=== PATIENT | male | born 1960 | race African-American/Black ===

== ENCOUNTER 2018-05-28 14:59 | Day surgery (SDC) | payer BC ==
[2018-05-26 17:22] VITALS: BMI 22.1
[2018-05-28] MEDS ORDERED: POVIDONE-IODINE OINTMENT 10% - 28.4 GM TUBE ONE (15:43)
[2018-05-28] MEDS ORDERED: BUPIVACAINE HCL/PF 0.5% (5MG/ML) 10 ML VIAL ONE (15:44)
--- NOTE | 2018-05-28 15:44 | HP ---
[facility] - Chief Complaint History of Present Illness: 57 year old man with chronic kidney disease needs placement of PD catheter for planned peritoneal dialysis. No prior abdominal surgery. History Source: Patient Limitations to Obtaining History: No Limitations - Current Medications Current Medications: Home Medications Medication Instructions Recorded Unobtainable 05/26/18 [facility] Physical Exam - Physical Examination General Appearance: Alert & Oriented x3 ENT: Clear Lung: Clear to auscultation Heart: Regular rate & rhythm Abdomen: Soft, No tenderness Extremities: No edema Neurological: Intact Satellite Impression/Plan - Impression/Plan Impression: CKD stage Operative Procedure: Laparoscopy, placement of PD catheter Date to be Performed: 05/28/18
[2018-05-28 16:00] LABS: POTASSIUM 4.5 mmol/L (3.5-5.1)
[2018-05-28] MEDS ORDERED: PROPOFOL 20 ML ONE (16:51)
[2018-05-28] MEDS ORDERED: ROCURONIUM BROMIDE 50 MG/5 ML VIAL ONE (16:51)
[2018-05-28] MEDS ORDERED: LIDOCAINE HCL/PF 2% SDV 5ML VIAL ONE (16:52)
[2018-05-28] MEDS ORDERED: ceFAZolin SODIUM 1 GM VIAL ONE (17:03)
[2018-05-28] MEDS ORDERED: SODIUM CHLORIDE 0.9% P/F 10 ML VIAL IJ ONE (17:03)
[2018-05-28] MEDS ORDERED: DEXAMETHASONE SOD PHOSPHATE 4 MG/1 ML VIAL ONE (17:05)
[2018-05-28] MEDS ORDERED: BUPIVACAINE HCL/PF (5 MG/ML) 30 ML VIAL IJ ONE (17:10)
[2018-05-28] MEDS ORDERED: ceFAZolin SODIUM 1 GM VIAL IVPB ONE (17:24)
[2018-05-28] MEDS ORDERED: NEOSTIGMINE METHYLSULFATE 0.5 MG/ML - 10 ML MDV ONE (17:45)
[2018-05-28] MEDS ORDERED: GLYCOPYRROLATE 0.2 MG/1 ML VIAL ONE (17:54)
[2018-05-28] MEDS ORDERED: ACETAMINOPHEN WITH CODEINE 300MG/30MG TABLET PO PRN (17:59)
--- NOTE | 2018-05-28 17:59 | OP ---
Operative Note - Note: Operative Date: 05/28/18 Pre-Operative Diagnosis: CKD stage 5 Operation: Laparoscopy, placement of peritoneal dialysis catheter Findings: No intraabdominal adhesions Implants: Curled swan neck PD catheter Post-Operative Diagnosis: Same as Pre-op Surgeon: Uvaldo Bai Anesthesiologist/ASSEMBLER RUBBER [employer]OTWEAR: Sher Corea Anesthesia: General
[2018-05-28] MEDS ORDERED: ONDANSETRON 4 MG/2 ML VIAL IVPUSH PRN (18:07)
[2018-05-28] MEDS ORDERED: oxyCODONE HCL 5 MG TABLET PO PRN (18:07)
[2018-05-28] MEDS ORDERED: SODIUM CHLORIDE 1,000 ML IV SCH (18:15)
[2018-05-28] MEDS ORDERED: oxyCODONE HCL 5 MG TABLET ONE (18:45)
[2018-05-28 20:21] VITALS: PULSE 71
[2018-05-28 22:35] VITALS: BP 163/93; TEMP 98.3
--- NOTE | 2018-05-29 12:41 | OP ---
DATE OF OPERATION: 05/28/2018 SURGEON: Uvaldo Thacker M.D. PROCEDURE: Laparoscopy with placement of peritoneal dialysis catheter. PREOPERATIVE DIAGNOSIS: Chronic kidney disease stage V. POSTOPERATIVE DIAGNOSIS: Chronic kidney disease stage V. ANESTHESIA: General. ANESTHESIOLOGIST: Sher Corea M.D. OPERATIVE FINDINGS: There were no intraabdominal adhesions. There were no intraabdominal hernias. OPERATIVE PROCEDURE: Following routine patient identification with site and side verification, general anesthesia was induced. The abdomen was prepped with ChloraPrep. Timeout was performed. The Veress needle was inserted atraumatically through the umbilicus and pneumoperitoneum was established with carbon dioxide to 15 mmHg pressure. Marcaine 0.5% was infiltrated to the incision. A 5 mm Optical View port was placed in the right side of the abdomen under direct visualization. A 30-degree laparoscope was then inserted and abdominal exploration was carried out. A second 5 mm port was placed in the left side of the abdomen under direct vision and a non-crushing clamp used to check that the bowel loops and the pelvis had no adhesions. An incision was then made to the right and above the umbilicus and carried into the subcutaneous tissues to the muscle fascia with sharp and blunt dissection. An 8 mm bladeless trocar was then advanced until the tip was seen above the peritoneum and then the trocar was directed towards the pelvis and entered the peritoneal cavity below the umbilicus. A curled Colton neck double cuffed Tenckhoff catheter was then straightened with the stylet and passed through the 8 mm port and deployed in the pelvis. The inner cuff was left at the level of the fascia as the trocar was removed. The other end of the catheter was attached to a curved metal tunnel, which was passed to the subcutaneous plane to exit in the left abdominal wall at the previously chosen site. Pneumoperitoneum was evacuated. The patient was placed in reverse Trendelenburg position. A luer-lock adapter was attached to the end of the catheter and 1 L of saline was run in over gravity drainage in approximately 3 and a half minutes. The bag was dropped to the floor and the fluid drained easily. The catheter was filled with heparin solution and was capped. All ports were removed. The incisions were all closed with subcutaneous sutures of 3-0 Vicryl and subcuticular sutures of 4-0 Bioysn. Sterile dressings were applied using Dermabond glue. The catheter was fixed to the skin with Bioclusive dressing and covered with an ABD pad. The patient was then awakened from anesthesia and extubated and taken to the recovery room. UVALDO THACKER M.D. [id number]
== END 2018-05-28 22:46 | disposition home or self-care (01) ==
LOC: JASU-SURG 14:59 → J6S 20:15 → JASU-SURG 22:46
PROVIDERS: ATTEND Surgery
PROC: 0WHG43Z Insertion of Infusion Device into Peritoneal Cavity, Percutaneous Endoscopic Approach (ICD-10-PCS; principal; 2018-05-28 16:00)
DX: E11.22 Type 2 diabetes mellitus with diabetic chronic kidney disease (principal); I12.0 Hypertensive chronic kidney disease with stage 5 chronic kidney disease or end stage renal disease; N18.5 Chronic kidney disease, stage 5
CPT/HCPCS: 36415; 82947; 84132; 94760; J1644